=== PATIENT | male | born 1960 | race Caucasian/White ===

== ENCOUNTER 2025-01-05 10:08 | Emergency (ER) | payer SELFPAY ==
[~2025-01-05] VITALS: Ht 182.9 cm; Wt 105.0 kg
[2025-01-05 11:12] VITALS: BP 164/72; TEMP 97.3; O2SAT 98
== END 2025-01-05 11:17 | disposition home or self-care (01) ==
LOC: M ED 10:08 → EDBD 10:08 → M ED 11:17
DX: Z04.1 Encounter for examination and observation following transport accident (principal); M54.9 Dorsalgia, unspecified; Z95.828 Presence of other vascular implants and grafts